=== PATIENT | male | born 1995 | race Caucasian/White ===

== ENCOUNTER → 2017-10-28 09:04 | Outpatient (CLI) | payer OTHER, SELFPAY ==
--- NOTE | 2017-10-28 14:03 | PFT ---
INTRODUCTION: The patient is a 22-year-old male, currently under the care of Dr. Parker, that presents for pulmonary function testing secondary to a diagnosis of initial test FEV1 less than 80%. Respiratory therapy reports good patient effort reports no other concerns. Bronchodilators were used during testing. INTERPRETATION: Forced expiration spirometry demonstrates no evidence of a large airways obstructive ventilatory defect. There was a significant response to aerosolized bronchodilators, based on overall change in FEV1. Spirogram's are of good quality and plateau normally. The respiratory flow volume loop reveals decreased expiratory flow rates at high lung volumes consistent with small airways obstruction. Body plethysmography was performed and reveals an elevated RV to 140% of predicted, indicative of underlying air trapping. Diffusing capacity by single breath CO was within normal limits. IMPRESSION: These pulmonary function studies demonstrate stigmata of small airways obstruction with associated air trapping and significant bronchodilator response. These findings could represent underlying asthma in the appropriate clinical setting.
== END ==
PROVIDERS: Family Provider Family Medicine; PCP Family Medicine; Visit Provider Family Medicine
DX: Z02.1 Encounter for pre-employment examination (principal); Z78.9 Other specified health status
CPT/HCPCS: 94060; 94726; 94729

== ENCOUNTER → 2018-05-01 14:44 | Outpatient (CLI) | payer OTHER, SELFPAY ==
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
== END ==
PROVIDERS: Family Provider Family Medicine; PCP Family Medicine; Visit Provider Family Medicine
DX: M54.2 Cervicalgia (principal)
CPT/HCPCS: 72050

== ENCOUNTER → 2018-08-12 10:07 | Outpatient (CLI) | payer OTHER, SELFPAY ==
[2018-05-04 16:13] VITALS: BMI 20.7
[2018-08-12 11:33] LABS: ALB/GLOB Ratio 1.2 RATIO (0.9-2.4); AST(SGOT) 17 U/L (15-37); Alanine Aminotransfer ALT/SGPT 21 U/L (16-61); Albumin, Serum 4.2 g/dL (3.2-5.0); Alkaline Phosphatase 75 U/L (45-117); Anion Gap 8 (5-15); BUN 12 mg/dL (7-18); BUN/Creat Ratio 14.1 RATIO (10-20); Calcium,Total 8.8 mg/dL (8.5-10.1); Chloride 105 mmol/L (98-107); Creatinine, Serum 0.85 mg/dL (0.70-1.30); EST Glomerular Filtration Rate 118 mL/min (>60); Est Glom Filt Rate - Afr Amer 143 mL/min (>60); Globulin 3.5 g/dL (2.2-4.2); Glucose 84 mg/dL (74-106); PSA,Total - Annual Screen 0.08 ng/mL (0.00-4.00); Potassium 4.1 mmol/L (3.5-5.1); Protein, Total 7.7 g/dL (6.4-8.2); Sodium Level 140 mmol/L (136-145)
== END ==
PROVIDERS: Family Provider Family Medicine; PCP Family Medicine; Referring Provider Nurse Practitioner Family; Visit Provider Nurse Practitioner Family
DX: L64.8 Other androgenic alopecia (principal); L21.8 Other seborrheic dermatitis
CPT/HCPCS: 36415; 80053; 84153; G0103

== ENCOUNTER → 2019-09-28 12:47 | Outpatient (CLI) | payer OTHER, SELFPAY ==
[2019-05-04 13:48] VITALS: BMI 20.2
[2019-09-28 14:14] LABS: ALB/GLOB Ratio 1.1 RATIO (0.9-2.4); AST(SGOT) 16 U/L (15-37); Alanine Aminotransfer ALT/SGPT 26 U/L (16-61); Albumin, Serum 4.3 g/dL (3.2-5.0); Alkaline Phosphatase 67 U/L (45-117); Anion Gap 4 (5-15); BUN 13 mg/dL (7-18); BUN/Creat Ratio 11.4 RATIO (10-20); Calcium,Total 9.4 mg/dL (8.5-10.1); Chloride 104 mmol/L (98-107); Creatinine, Serum 1.14 mg/dL (0.70-1.30); EST Glomerular Filtration Rate 83 mL/min (>60); Est Glom Filt Rate - Afr Amer 101 mL/min (>60); Globulin 3.8 g/dL (2.2-4.2); Glucose 88 mg/dL (74-106); Potassium 4.1 mmol/L (3.5-5.1); Protein, Total 8.1 g/dL (6.4-8.2); Sodium Level 138 mmol/L (136-145)
[2019-09-29 12:26] LABS: PSA, Free 0.02 ng/mL; PSA, Total Ultrasensitive 0.1 ng/mL (0.0-4.0)
== END ==
PROVIDERS: PCP Family Medicine; Referring Provider Dermatology Pediatric Dermatology; Visit Provider Dermatology Pediatric Dermatology
DX: L64.8 Other androgenic alopecia (principal); L21.8 Other seborrheic dermatitis
CPT/HCPCS: 36415; 80053; 84153; 84154

== ENCOUNTER → 2020-08-01 | Outpatient (CLI) | payer OTHER, SELFPAY ==
[2020-05-09 09:23] VITALS: BMI 20.3
== END | disposition home or self-care (01) ==
LOC: LABSPEC 10:13
PROVIDERS: PCP Family Medicine; Referring Provider Family Medicine; Visit Provider Family Medicine
DX: Z20.828 Contact with and (suspected) exposure to other viral communicable diseases (principal)
CPT/HCPCS: 87635; C9803; U0003

== ENCOUNTER → 2023-03-20 | Outpatient (CLI) | payer OTHER, SELFPAY ==
[2023-03-20 10:07] LABS: Absolute Lymphocyte Count 1.87 X10^3/uL (0.83-4.51); Absolute Neutrophil Count 4.2 X10^3/uL (2.0-7.7); Basophil# 0.05 X10^3/uL; Basophil% 0.7 % (0-1); Eosinophils% 1.4 % (0-5); Hematocrit 50.6 % (40-54); Hemoglobin 17.5 g/dL (13.0-16.5); Lymphocyte # 1.87 X10^3/ul (0.83-4.51); Lymphocyte % 26.6 % (19-41); Mean Corp Hgb Conc 34.6 g/dL (32-36); Mean Corpuscular Hgb 30.2 pg (27.0-32.0); Mean Corpuscular Volume 87.2 fL (80-94); Mean Platelet Vol. 8.7 fl (6.2-12.0); Monocyte# 0.77 X10^3/uL; Monocyte% 10.9 % (0-10); NRBC Flagged by Analyzer 0 % (0-5); Neutrophil # 4.23 X10^3/uL (2.7-7.7); Neutrophil % 60.1 % (47-70); Platelet Count 303 K/mm3 (150-450); RBC Distribution Width CV 12.2 % (11.6-14.6); RBC Distribution Width SD 39.1 fl (35.1-43.9)
[2023-03-20 10:36] LABS: AST(SGOT) 18 U/L (15-37); Alanine Aminotransfer ALT/SGPT 34 U/L (16-61); Alkaline Phosphatase 83 U/L (45-117); Anion Gap 9 (5-15); BUN 16 mg/dL (7-18); BUN/Creat Ratio 17.2 RATIO (10-20); Calcium,Total 9.2 mg/dL (8.5-10.1); Chloride 100 mmol/L (98-107); Cholesterol 125 mg/dL (200); Creatinine, Serum 0.93 mg/dL (0.70-1.30); EST Glomerular Filtration Rate 102 mL/min (>60); Est Glom Filt Rate - Afr Amer 124 mL/min (>60); Globulin 4.2 g/dL (2.2-4.2); Glucose 96 mg/dL (74-106); High Density Lipoprotein 52 mg/dL; Potassium 3.9 mmol/L (3.5-5.1); Protein, Total 8.2 g/dL (6.4-8.2); Sodium Level 136 mmol/L (136-145); Triglycerides 59 mg/dL; Very Low Density Lipoprotein 12 mg/dL (5-40)
[2023-03-21 05:07] LABS: Transferrin 309 mg/dL (177-329)
== END | disposition home or self-care (01) ==
PROVIDERS: PCP Family Medicine; Referring Provider Family Medicine; Visit Provider Family Medicine
DX: Z00.00 Encounter for general adult medical examination without abnormal findings (principal); Z83.49 Family history of other endocrine, nutritional and metabolic diseases
CPT/HCPCS: 36415; 80053; 80061; 84466; 85025